=== PATIENT | female | born 1955 | race Caucasian/White ===

== ENCOUNTER 2016-12-25 12:44 | Emergency (ER) | payer MEDICARE, BC ==
[~2016-12-25] VITALS: Ht 162.6 cm; Wt 68.0 kg
[2016-12-25 13:15] VITALS: BP 155/99
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
[2016-12-25] MEDS ORDERED: KETOROLAC TROMETHAMINE 60 MG/2 ML INJ. IM ONE (14:30)
== END 2016-12-25 14:48 | disposition home or self-care (01) ==
LOC: ER 12:44
DX: G89.29 Other chronic pain (principal); M54.89 Other dorsalgia; Z88.0 Allergy status to penicillin
CPT/HCPCS: 96372; 99283; J1885

== ENCOUNTER 2017-09-07 08:34 | Inpatient (IN) | payer MEDICARE, BC ==
[2017-09-07 09:23] LABS: BILIRUBIN,URINE NEGATIVE (NEG); CLARITY,URINE CLEAR; COLOR,URINE YELLOW; GLUCOSE,URINE NEGATIVE (NEG); NITRITE,URINE NEGATIVE (NEG); PROTEIN,URINE NEGATIVE (NEG-TRACE); UROBILINOGEN,URINE 0.2 mg/dL (0.2 mg/dL)
[2017-09-07 09:30] LABS: BARBITURATES POS (NEG); BENZODIAZEPINES POS (NEG); CANNABINOIDS NEG (NEG); COCAINE NEG (NEG); METHADONE NEG (NEG); OPIATES NEG (NEG); PHENCYCLIDINE NEG (NEG)
[2017-09-07 09:33] LABS: BACTERIA,URINE FEW /HPF (0-FEW); RBC,URINE OCC /HPF (0-2); SQUAMOUS EPITHELIAL CELL,UR MOD /LPF
[2017-09-07 09:36] LABS: AMPHETAMINE/METHAMPHETAMINE NEG (NEG); ETHANOL, URINE NEG (NEG)
[2017-09-07 09:50] LABS: ADD MAN DIFF? NO
[2017-09-07 10:05] LABS: BASO % 0 % (0-3); EOS % 0 % (0-3); HEMATOCRIT 36.1 % (36.0-47.0); HEMOGLOBIN 12.3 g/dL (12.0-15.5); LYMPH # 1.9 x10^3/uL (1.0-4.8); LYMPH % 18 % (24-48); MEAN CORPUSCULAR HEMOGLOBIN 32 pg (25-35); MEAN CORPUSCULAR HGB CONC 34 g/dL (31-37); MEAN CORPUSCULAR VOLUME 93 fL (79-100); MONO # 0.5 x10^3/uL (0.0-1.1); MONO % 5 % (0-9); NEUT # 8.2 x10^3uL (1.8-7.7); NEUT % 76 % (31-73); PLATELET COUNT 283 x10^3/uL (140-400); RED BLOOD COUNT 3.89 x10^6/uL (3.50-5.40); RED CELL DISTRIBUTION WIDTH 14.3 % (11.5-14.5); WHITE BLOOD COUNT 10.8 x10^3/uL (4.0-11.0)
[2017-09-07 10:07] LABS: ANION GAP 12 (6-14); BLOOD UREA NITROGEN 7 mg/dL (7-20); CALCIUM 9.2 mg/dL (8.5-10.1); CARBON DIOXIDE 25 mmol/L (21-32); CHLORIDE 102 mmol/L (98-107); CREATININE 0.8 mg/dL (0.6-1.0); GFR 72.2; GLUCOSE 92 mg/dL (70-99); POTASSIUM 3.9 mmol/L (3.5-5.1); SODIUM 139 mmol/L (136-145)
[2017-09-07 10:10] LABS: AMMONIA 18 mcmol/L (11-34); ETHANOL < 10 mg/dL (0-10)
[2017-09-07 10:14] LABS: ALBUMIN 3.7 g/dL (3.4-5.0); ALK PHOS 77 U/L (46-116); ALT (SGPT) 9 U/L (14-59); AST (SGOT) 17 U/L (15-37); DIRECT BILIRUBIN 0.1 mg/dL (0.0-0.2); TOTAL BILIRUBIN 0.4 mg/dL (0.2-1.0); TOTAL PROTEIN 7.1 g/dL (6.4-8.2)
[2017-09-07] MEDS: MORPHINE SULFATE 4 MG/ML DISP.SYRIN. IV/SQ ×2 (11:01→12:13)
[2017-09-07] MEDS ORDERED: MORPHINE SULFATE 2 MG/ML DISP.SYRIN. IV (11:45)
[2017-09-07] MEDS ORDERED: ONDANSETRON PF 4 MG/2 ML VIAL. IV (11:45)
[2017-09-07] MEDS ORDERED: DOCUSATE SODIUM 100 MG CAPSULE. PO (12:45)
[2017-09-07] MEDS ORDERED: hydrALAZINE 20 MG/ML VIAL. IVP (12:45)
[2017-09-07] MEDS: oxyCODONE/APAP 10/325 1 TAB TABLET PO (16:44)
[2017-09-07] MEDS: ENOXAPARIN 40 MG/0.4 ML SYRINGE. SQ (16:45)
[2017-09-07] MEDS: traMADol 50 MG TABLET PO (18:14)
[2017-09-07] MEDS: diazePAM 5 MG TABLET PO (18:14)
[2017-09-07] MEDS: BUTALB/APAP/CAFEIN 50/325/40MG TABLET. PO (18:29)
[2017-09-07] MEDS: METHOCARBAMOL 750 MG TABLET PO (20:29)
[2017-09-07] MEDS: hydrOXYzine PAMOATE 25 MG CAPSULE PO (20:29)
[2017-09-07] MEDS: MORPHINE SULFATE 2 MG/ML DISP.SYRIN. IV (20:30)
[2017-09-08] MEDS: MORPHINE SULFATE 2 MG/ML DISP.SYRIN. IV ×3 (02:29→09:13)
[2017-09-08] MEDS: diazePAM 5 MG TABLET PO ×4 (03:06→20:56)
[2017-09-08] MEDS: oxyCODONE/APAP 10/325 1 TAB TABLET PO ×3 (04:07→20:56)
[2017-09-08 04:09] LABS: ADD MAN DIFF? NO
[2017-09-08] MEDS: ONDANSETRON PF 4 MG/2 ML VIAL. IV (04:11)
[2017-09-08 04:14] LABS: BASO % 0 % (0-3); EOS # 0.1 x10^3/uL (0.0-0.7); EOS % 1 % (0-3); HEMATOCRIT 37.2 % (36.0-47.0); HEMOGLOBIN 12.3 g/dL (12.0-15.5); LYMPH # 3.8 x10^3/uL (1.0-4.8); LYMPH % 45 % (24-48); MEAN CORPUSCULAR HEMOGLOBIN 31 pg (25-35); MEAN CORPUSCULAR HGB CONC 33 g/dL (31-37); MEAN CORPUSCULAR VOLUME 94 fL (79-100); MONO # 0.6 x10^3/uL (0.0-1.1); MONO % 7 % (0-9); NEUT # 3.9 x10^3uL (1.8-7.7); NEUT % 46 % (31-73); PLATELET COUNT 265 x10^3/uL (140-400); RED BLOOD COUNT 3.95 x10^6/uL (3.50-5.40); RED CELL DISTRIBUTION WIDTH 14.4 % (11.5-14.5); WHITE BLOOD COUNT 8.3 x10^3/uL (4.0-11.0)
[2017-09-08 04:33] LABS: ANION GAP 10 (6-14); BLOOD UREA NITROGEN 8 mg/dL (7-20); CALCIUM 8.9 mg/dL (8.5-10.1); CARBON DIOXIDE 27 mmol/L (21-32); CHLORIDE 101 mmol/L (98-107); CREATININE 0.7 mg/dL (0.6-1.0); GFR 84.2; GLUCOSE 87 mg/dL (70-99); POTASSIUM 3.4 mmol/L (3.5-5.1); SODIUM 138 mmol/L (136-145)
[2017-09-08] MEDS: FLUoxetine HCL 20 MG CAPSULE PO (08:00)
[2017-09-08] MEDS: hydrOXYzine PAMOATE 25 MG CAPSULE PO ×3 (08:01→20:57)
[2017-09-08] MEDS: traMADol 50 MG TABLET PO (08:01)
[2017-09-08] MEDS: BUTALB/APAP/CAFEIN 50/325/40MG TABLET. PO (08:01)
[2017-09-08] MEDS ORDERED: POLYETHYLENE GLYCOL 3350 17 GM PACKET. PO (08:15)
[2017-09-08] MEDS ORDERED: MAGNESIUM HYDROXIDE 2,400 MG/30 ML ORAL.SUSP. PO (08:15)
[2017-09-08] MEDS: DOCUSATE SODIUM 100 MG CAPSULE. PO (09:00)
[2017-09-08] MEDS: POTASSIUM CHLORIDE 20 MEQ TABLET.ER. PO (09:10)
[2017-09-08] MEDS ORDERED: SUMAtriptan SUCCINATE 25 MG TABLET PO (11:15)
[2017-09-08] MEDS: KETOROLAC 30 MG/ML INJ. IV (11:34)
[2017-09-08] MEDS: diphenhydrAMINE 50 MG/ML VIAL IVP (11:34)
[2017-09-08] MEDS: PROMETHAZINE 12.5 MG in IV DEXTROSE 5% 50 ML IV (11:34)
[2017-09-08] MEDS: ENOXAPARIN 40 MG/0.4 ML SYRINGE. SQ (16:23)
[2017-09-08] MEDS: METHOCARBAMOL 750 MG TABLET PO (20:56)
[2017-09-08] MEDS: ACETAMINOPHEN 325 MG TABLET. PO (23:45)
[2017-09-09] MEDS: oxyCODONE/APAP 10/325 1 TAB TABLET PO ×2 (03:39→12:46)
[2017-09-09] MEDS: diazePAM 5 MG TABLET PO ×2 (05:05→16:03)
[2017-09-09] MEDS: KETOROLAC 30 MG/ML INJ. IV (05:35)
[2017-09-09] MEDS: ACETAMINOPHEN 325 MG TABLET. PO (07:14)
[2017-09-09] MEDS: FLUoxetine HCL 20 MG CAPSULE PO (07:40)
[2017-09-09] MEDS: hydrOXYzine PAMOATE 25 MG CAPSULE PO ×2 (07:40→12:46)
[2017-09-09] MEDS: DOCUSATE SODIUM 100 MG CAPSULE. PO (07:40)
[2017-09-09] MEDS: BUTALB/APAP/CAFEIN 50/325/40MG TABLET. PO (07:41)
[2017-09-09] MEDS ORDERED: PROMETHAZINE 12.5 MG TABLET. PO (14:45)
[2017-09-09] MEDS ORDERED: methylPREDNISolone ACETATE 40 MG/ML VIAL. IM ×2 (16:30)
[2017-09-09] MEDS ORDERED: BUPIVACAINE MPF 0.25% 10 ML VIAL. IJ (16:30)
[2017-09-09] MEDS: ENOXAPARIN 40 MG/0.4 ML SYRINGE. SQ (16:45)
== END 2017-09-09 17:07 | disposition home or self-care (01) | DRG 552 ==
LOC: ER 08:34 → 5 NORTH 10:51
DX: M51.37 Other intervertebral disc degeneration, lumbosacral region (principal); F11.20 Opioid dependence, uncomplicated; G43.909 Migraine, unspecified, not intractable, without status migrainosus; F41.9 Anxiety disorder, unspecified; M54.9 Dorsalgia, unspecified; G89.29 Other chronic pain; J40 Bronchitis, not specified as acute or chronic; M17.0 Bilateral primary osteoarthritis of knee; Z88.0 Allergy status to penicillin
CPT/HCPCS: 36415; 72100; 74018; 80048; 80076; 80307; 81001; 82140; 85025; 96374; 96376; 97116-GP; 97162-GP; 97166-GO; 99285-25; G0480; J1200; J1650; J1885; J2270; J2405; J2550; Q0177

== ENCOUNTER 2019-07-01 12:37 | Emergency (ER) | payer MEDICARE, BC ==
[~2019-07-01] VITALS: Ht 162.6 cm; Wt 86.2 kg
[~2019-07-01 12:37] MED LIST: BUTA1TAB23 PO; FLUO20CA19 PO; HYDR-2765 PO; HYDR25TA PO; METH-38 PO
[2019-07-01 13:10] VITALS: BP 132/76
[2019-07-01] MEDS ORDERED: NAPROXEN 500 MG TABLET PO STA (13:16)
[2019-07-01] MEDS ORDERED: predniSONE 10 MG TABLET PO ONE (13:30)
[2019-07-01] MEDS ORDERED: CYCLOBENZAPRINE 10 MG TABLET. PO ONE (13:30)
[2019-07-01] MEDS ORDERED: HYDROcodone/APAP 5/325MG 1 TAB TABLET PO ONE (13:30)
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
[2019-07-01] MEDS ORDERED: CYCL10TA2 PO (14:27)
[2019-07-01] MEDS ORDERED: HYDR-3164 PO (14:27)
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
== END 2019-07-01 14:40 | disposition home or self-care (01) ==
LOC: ER 12:37
DX: S13.9XXA Sprain of joints and ligaments of unspecified parts of neck, initial encounter (principal); M54.5 Low back pain; M54.6 Pain in thoracic spine; M25.561 Pain in right knee; Z90.710 Acquired absence of both cervix and uterus; M79.7 Fibromyalgia; Z88.0 Allergy status to penicillin; V49.59XA Passenger injured in collision with other motor vehicles in traffic accident, initial encounter; Y93.89 Activity, other specified; Y92.488 Other paved roadways as the place of occurrence of the external cause; Y99.8 Other external cause status
CPT/HCPCS: 72125; 72128; 72131; 73562; 99284; J7512

== ENCOUNTER → 2019-09-16 | Outpatient (CLI) | payer OTHER, MEDICARE, BC ==
[~2019-09-16] MED LIST changes: +CYCL10TA2 PO; -FLUO20CA19 PO; +FLUO20CA20 PO; +GABA300C18 PO; +HYDR-3164 PO; +IOHEXOL 180 MG/ML 10 ML VIAL. ONE; +LOSA-73 PO; +MULT-245 PO; +methylPREDNISolone ACETATE 40 MG/ML VIAL. ONE; +methylPREDNISolone ACETATE 80 MG/ML VIAL. ONE
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
== END ==
LOC: PNCL 10:08
PROVIDERS: ATTEND Anesthesiology
DX: M51.16 Intervertebral disc disorders with radiculopathy, lumbar region (principal); M96.1 Postlaminectomy syndrome, not elsewhere classified; F17.210 Nicotine dependence, cigarettes, uncomplicated; M79.7 Fibromyalgia; Z87.39 Personal history of other diseases of the musculoskeletal system and connective tissue; Z90.710 Acquired absence of both cervix and uterus; Z98.890 Other specified postprocedural states; Z88.0 Allergy status to penicillin
CPT/HCPCS: 62323; J1030; J1040; Q9965

== ENCOUNTER → 2019-09-30 | Outpatient (CLI) | payer OTHER, MEDICARE, BC ==
[~2019-09-30] MED LIST changes: -IOHEXOL 180 MG/ML 10 ML VIAL. ONE; +IOHEXOL 240 MG/ML 50ML VIAL. ONE
--- NOTE | 2019-09-30 15:52 | PAIN ---
DATE OF SERVICE: 09/30/2019 PROGRESS NOTE FOR PAIN CLINIC DIAGNOSES: Lumbar radiculopathy with lumbar degenerative disk disease and lumbar post-laminectomy syndrome. HISTORY OF PRESENT ILLNESS: The patient is a 64-year-old female who returns for followup status post lumbar epidural steroid injection x 1. The patient reports about 50% improvement for the first week to week and a half. The patient reports the pain is returning now in the low back into the bilateral lower extremities, more now on the left side than the right. Previously it was on the right side, the posterior gluteus, posterior thigh as now on the left side in the posterior gluteus, posterior thigh. The patient reports it is worse with walking, standing, changing positions. The patient also complains of significant knee pain on the right. She has recently seen orthopedic surgeon who by her report has reassured her that was from her accident and no surgical intervention is necessary. The patient reports still significant pain in the back and leg bilaterally, 10 on scale of 10 at its worse, the past week, 8-9 on average, 6 at its least and is a 9 today. The patient reports it is severe, sharp and aching, shooting and burning and stabbing into the low back and with radiation to the left leg. PHYSICAL EXAMINATION: VITAL SIGNS: The patient's blood pressure is 110/65, pulse 88, respirations 18, temperature 98.0 degrees Fahrenheit, height is 5 feet 4 inches and weight is 193 pounds. GENERAL: The patient is awake, alert, oriented, appropriate, very pleasant demeanor. HEENT: Head shows normocephalic, atraumatic. Extraocular movements are intact and symmetrical. Oral cavity: Mucous membranes moist and pink. Dentition is intact. NECK: Shows anterior throat supple without palpable lymphadenopathy noted. Swallow reflex symmetrical. CHEST: Shows normal on inspection. Breath sounds clear to auscultation bilaterally. HEART: Shows S1, S2 clear. ABDOMEN: Soft, nontender, nondistended. BACK: Shows spine grossly in the midline. Normal appearing thoracic kyphosis and lumbar lordotic curvature. Lumbar paraspinous muscle shows symmetrical on inspection, on palpation shows some moderate tenderness diffusely, but only diffusely without significant radiation. The patient has good rotational motion of lumbar spine, both laterally as well as extension and flexion. A well-healed surgical scar is again noted. EXTREMITIES: The patient's lower extremities show deep tendon reflexes at 1+ patellar and tendo calcaneus tendons. Motor exam is approximately 4 on scale of 5 on the right, 5/5 on the left with dorsiflexion, extension, quadriceps and hamstring flexion. Peripheral pulses are 1+ posterior tibia and no peripheral edema bilaterally. Options were discussed with the patient. The patient's old chart was reviewed as her current medication regimen updated. Current review of systems updated today as well. We will proceed with a second in the series of lumbar epidural steroid injection today with fluoroscopic guidance. Risks were again discussed including, but not limited to bleeding, infection, possibility of epidural hematoma, subsequent neurological compromise, dural puncture, headaches, spinal cord and/or nerve damage, side effects of steroid medication and poor results regarding pain control. The patient understands and wished to proceed. The patient will return to clinic in approximately 2 weeks for followup. She was counseled on return appointment, activity level and side effects to be aware of. DIAGNOSES: Lumbar radiculopathy with lumbar degenerative disk disease and lumbar post-laminectomy syndrome. PROCEDURE: Lumbar epidural steroid injection, translaminar approach at the L5-S1 level using C-arm fluoroscopic guidance under sterile prep and drape using local anesthetic. MEDICATION INJECTED: A total of 120 mg Depo-Medrol plus 10 mL of preservative-free normal saline and 2 mL of contrast. CONDITION AT DISCHARGE: Stable. The patient tolerated procedure well, had no complications. DIANNE PURCELL MD DR: TEDDY/brandon JOB#: [id number] / [id number]
== END | disposition home or self-care (01) ==
LOC: PNCL 11:33
PROVIDERS: ATTEND Anesthesiology
DX: M51.16 Intervertebral disc disorders with radiculopathy, lumbar region (principal); M96.1 Postlaminectomy syndrome, not elsewhere classified; Z98.890 Other specified postprocedural states; Z88.0 Allergy status to penicillin
CPT/HCPCS: 62323; J1030; J1040; Q9966

== ENCOUNTER → 2019-10-15 | Outpatient (CLI) | payer OTHER, MEDICARE, BC ==
[~2019-10-15] MED LIST changes: +IOHEXOL 180 MG/ML 10 ML VIAL. ONE; -IOHEXOL 240 MG/ML 50ML VIAL. ONE
--- NOTE | 2019-10-15 10:28 | PAIN ---
DATE OF SERVICE: 10/15/2019 PROGRESS NOTE FOR PAIN CLINIC DIAGNOSES: Lumbar radiculopathy with lumbar degenerative disk disease and lumbar post-laminectomy syndrome. HISTORY OF PRESENT ILLNESS: The patient is a 64-year-old female who returns for followup status post lumbar epidural steroid injection x 2. The patient reports about 50% improvement for the first 3 weeks or so, the pain has been returning now over the past couple of days in the low back and bilateral lower extremities, posterior gluteus, posterior thighs, posterior calves, also some knee pain, which actually improved quite a bit after her second injection. The patient reports the pain beginning to awaken her from sleep again over the past few days. Initially, she was doing much better with distance walking, doing household activities, traveling with greater ease and comfort, getting out of a car with ease and comfort, now it is beginning to her from sleep again over the past few days. The patient reports no new motor or sensory deficits, no new bowel or bladder incontinence. Reports the pain is a 9 on a scale of 10 at its worst, 8 on average, 8 at its least and is an 8 today. The patient reports it is aching, sharp, shooting, constant, becoming more stabbing in the low back and legs as well as the patient reports no new changes. PHYSICAL EXAMINATION: VITAL SIGNS: The patient's blood pressure 117/72, pulse 76, respirations 18, temperature 98.6 degrees Fahrenheit, height is 5 feet 4 inches, weight is 196 pounds. GENERAL: The patient is awake, alert, oriented, appropriate, very pleasant demeanor. HEENT: Head shows normocephalic, atraumatic. Extraocular movements are intact and symmetrical. Oral cavity shows mucous membranes moist and pink. Dentition is intact. NECK: Shows anterior throat supple without palpable lymphadenopathy noted. Swallow reflex symmetrical. CHEST: Shows normal on inspection. Breath sounds are clear bilaterally. HEART: Shows S1, S2 clear. No murmurs auscultated. ABDOMEN: Soft, nontender, nondistended. BACK: Shows spine grossly in the midline. Normal appearing thoracic kyphosis and some flattening of lumbar lordotic curvature with well-healed midline surgical scarring. Lumbar paraspinous muscle shows symmetrical on inspection, on palpation shows some moderate tenderness diffusely bilaterally going diffusely without significant radiation. EXTREMITIES: The patient's lower extremities show deep tendon reflexes 1+ patellar and tendo calcaneus tendons. Motor exam is 4 on a scale of 5 on the right with dorsiflexion and extension, 5/5 on the left. Peripheral pulses are 1+. No peripheral edema bilaterally. Options were discussed with the patient. The patient's old chart was reviewed as her current medication regimen updated. Current review of systems updated today as well and we will proceed with a third in a series of lumbar epidural steroid injection today with fluoroscopic guidance. Risks were again discussed including, but not limited to bleeding, infection, possibility of epidural hematoma, subsequent neurological compromise, dural puncture, headaches, spinal cord and/or nerve damage, side effects of steroid medication and poor results regarding pain control. The patient understands and wished to proceed. The patient will return to clinic in approximately 2 weeks for followup. She was counseled on return appointment, activity level and side effects to be aware of. DIAGNOSES: Lumbar radiculopathy with lumbar degenerative disk disease and lumbar post-laminectomy syndrome. PROCEDURE: Lumbar epidural steroid injection, translaminar approach L5-S1 level using C-arm fluoroscopic guidance under sterile prep and drape using local anesthetic. MEDICATION INJECTED: A total of 120 mg of Depo-Medrol plus 10 mL of preservative-free normal saline and 2 mL of contrast. CONDITION AT DISCHARGE: Stable. The patient tolerated procedure well, had no complications. DIANNE PURCELL MD DR: TEDDY/brandon JOB#: [id number] / [id number]
== END | disposition home or self-care (01) ==
LOC: PNCL 09:29
PROVIDERS: ATTEND Anesthesiology
DX: M51.16 Intervertebral disc disorders with radiculopathy, lumbar region (principal); M96.1 Postlaminectomy syndrome, not elsewhere classified; Z98.890 Other specified postprocedural states; Z88.0 Allergy status to penicillin
CPT/HCPCS: 62323; J1030; J1040; Q9965

== ENCOUNTER → 2020-04-19 | Outpatient (CLI) | payer MEDICARE, BC ==
[~2020-04-19] MED LIST changes: -IOHEXOL 180 MG/ML 10 ML VIAL. ONE; -methylPREDNISolone ACETATE 40 MG/ML VIAL. ONE; -methylPREDNISolone ACETATE 80 MG/ML VIAL. ONE
--- NOTE | 2020-04-19 15:45 | RAD ---
BILATERAL SCREENING MAMMOGRAM, 3-D History: Routine screening. Comparison: None. No mammographic examination in the past 10 years. This is the new baseline. Technique: MLO and CC digital tomosynthesis (3D) images obtained. Radiologist reviewed these images on dedicated workstation. Findings: Breast Tissue Density B : There are scattered areas of fibroglandular density. There are no dominant masses, suspicious microcalcifications, or architectural distortion. IMPRESSION: No mammographic evidence of malignancy. Recommend routine screening. BI-RADS category 1: Negative. The images were reviewed with computer-aided detection. Patient information is entered into reminder system with a target due date for the next screening mammogram. Mammography is the most sensitive method for finding small breast cancers, but it does not detect them all and is not a substitute for careful clinical examination. A negative mammogram does not negate a clinically suspicious finding and should not result in delay in biopsying a clinically suspicious abnormality. "Our facility is accredited by the [employer] Mammography Program." Electronically signed by: Hipolito Tierney MD (04/19/2020 3:42 PM) [id number]
== END | disposition home or self-care (01) ==
LOC: MAMMO 08:54
PROVIDERS: ATTEND Internal Medicine
DX: Z12.31 Encounter for screening mammogram for malignant neoplasm of breast (principal)
CPT/HCPCS: 77063; 77067